=== PATIENT | female | born 1965 | race Caucasian/White ===

== ENCOUNTER 2019-03-06 11:38 | Emergency (ER) | payer BC ==
--- NOTE | 2019-03-06 12:26 | EDM.PDOC ---
ED HPI GENERAL MEDICAL PROBLEM - General Chief Complaint: Back Pain or Injury Stated Complaint: UPPER BACK PAIN x 5 DAYS Time Seen by Provider: 03/06/19 12:11 Source of Information: Reports: Patient History Limitations: Reports: No Limitations - History of Present Illness INITIAL COMMENTS - FREE TEXT/NARRATIVE: Patient is a 53-year-old female who presents with complaints of upper back pain for the last 5 days. She states 5 days ago she awoke with this pain. Pain is worse on the left than the right. If she turns her head to the left the pain does radiate down her left arm. She denies numbness or tingling with this pain. Patient had a deep tissue massage done yesterday which she states was very painful for her. She was also seen by the chiropractor today who did adjust her, but stopped because it was causing her too much pain. He recommended that she come to the ER to be evaluated and receive medications as needed. She denies any traumatic injury to the area. She has not fallen or done any activities out of the normal for her. She has no history of chronic back pain. Has no chronic health problems. She has been taking Tylenol and ibuprofen for the pain. Her last dose of ibuprofen 600 mg was at 8:00 this morning. Left Upper Back Pain Score (Numeric/FACES): 10 - Related Data Allergies Allergy/AdvReac Type Severity Reaction Status Date / Time No Known Allergies Allergy Verified 03/06/19 11:55 Home Meds: Home Meds Cyclobenzaprine [Flexeril] 10 mg PO Q8H PRN #15 tablet 03/06/19 [Rx] Diclofenac Sodium [Voltaren] 50 mg PO Q8H 5 Days #15 tab.ec 03/06/19 [Rx] Past Medical History HEENT History: Reports: Impaired Vision Psychiatric History: Reports: Anxiety, Depression Social & Family History - Tobacco Use Smoking Status *Q: Never Smoker - Caffeine Use Caffeine Use: Reports: Tea - Recreational Drug Use Recreational Drug Use: No ED ROS GENERAL - Review of Systems Review Of Systems: See Below Constitutional: Reports: No Symptoms. Denies: Weakness HEENT: Reports: No Symptoms Respiratory: Reports: No Symptoms Cardiovascular: Reports: No Symptoms Endocrine: Reports: No Symptoms GI/Abdominal: Reports: No Symptoms : Reports: No Symptoms Musculoskeletal: Reports: Back Pain (upper back) Skin: Reports: No Symptoms Neurological: Reports: No Symptoms. Denies: Paresthesia Psychiatric: Reports: No Symptoms Hematologic/Lymphatic: Reports: No Symptoms ED EXAM, UPPER BACK/NECK PAIN - Physical Exam Exam: See Below Exam Limited By: Altered Mental Status General Appearance: Alert, WD/WN, No Apparent Distress Neck Exam: Non-Tender, Full Range of Motion, Normal Alignment, Normal Inspection , Other (negative spurling bilaterally) Cardiovascular/Respiratory: Regular Rate, Rhythm, Normal Peripheral Pulses, Normal Breath Sounds, No Respiratory Distress GI/Abdominal: Normal Bowel Sounds, Soft, Non-Tender Back Exam: Normal Inspection, Full Range of Motion (with pain), Muscle Spasm ( left trapezius ), Paraspinal Tenderness (left T1-T8) Extremities: Normal Inspection, Normal Range of Motion Neurologic: No Motor/Sensory Deficits, Alert, Normal Mood/Affect, Oriented x 3 Psychiatric: Normal Affect, Normal Mood Skin Exam: Normal Color, Warm/Dry Lymphatic: No Adenopathy Course - Vital Signs Last Recorded V/S: Last Vital Signs Temp 97.7 F 03/06/19 11:56 Pulse 71 03/06/19 11:56 Resp 16 03/06/19 11:56 BP 114/78 03/06/19 11:56 Pulse Ox 100 03/06/19 11:56 - Re-Assessments/Exams Free Text/Narrative Re-Assessment/Exam: On exam, patient's pain is muscular in nature extending throughout the left trapezius muscle. Muscle is tight on palpation. Pain is worsened by moving her left arm or turning her head far to the left. There is no acute injury to the area so I don't feel that an x-ray is warranted. Treatment will be Flexeril and Voltaren. Since patient did just take 600 mg of ibuprofen about 4 hours ago I'll prescribe the Voltaren and have her take it when she gets home. Patient also has to drive about 50 miles to get home so we will not give the Flexeril in the emergency department as this can be sedating. She requests medications be electronically prescribed [facility]. Discharge instructions as noted Departure - Departure Time of Disposition: 12:31 Disposition: Home, Self-Care 01 Condition: Fair Clinical Impression: Muscle strain of upper back - Discharge Information *PRESCRIPTION DRUG MONITORING PROGRAM REVIEWED*: No *COPY OF PRESCRIPTION DRUG MONITORING REPORT IN PATIENT LAMAR: No Prescriptions: Cyclobenzaprine [Flexeril] 10 mg PO Q8H PRN #15 tablet PRN Reason: Muscle Spasm Diclofenac Sodium [Voltaren] 50 mg PO Q8H 5 Days #15 tab.ec Instructions: Muscle Strain, [id number] Referrals: Crow Montalvo MD [Primary Care Provider] - Forms: ED Department Discharge Additional Instructions: You were seen in the emergency Department today with upper back pain for the last 5 days. On exam, your upper left paraspinal muscles are tender and spasmed indicating that her pain is likely muscular in nature. You have been prescribed Flexeril as needed for back spasms as well as Voltaren for pain and inflammation. These medications have been set electronically to [facility]. Do not take ibuprofen while taking the Voltaren, however you may use Tylenol as needed. The Flexeril can be sedating so we recommend that she do not drive after taking the medication until you know how the medication effects you. You may use heat, ice, and massage to the area. You should begin to see improvement over the next couple days. If he expands any new or worsening symptoms, please do not hesitate to return to the emergency department. Sepsis Event Note - Evaluation Sepsis Screening Result: No Definite Risk - Focused Exam Vital Signs: Vital Signs Temp Pulse Resp BP Pulse Ox 03/06/19 11:56 97.7 F 71 16 114/78 100 Date Exam was Performed: 03/06/19 Time Exam was Performed: 12:46
== END 2019-03-06 12:53 | disposition home or self-care (01) ==
LOC: JD.ED 11:38
DX: S29.012A Strain of muscle and tendon of back wall of thorax, initial encounter (principal); X58.XXXA Exposure to other specified factors, initial encounter
CPT/HCPCS: 99283